=== PATIENT | female | born 1980 | race Hispanic/Latino ===

== ENCOUNTER 2023-03-20 21:07 | Emergency (ER) | payer MEDICARE ==
[~2023-03-20] VITALS: Ht 185.4 cm; Wt 94.8 kg
[2023-03-20] MEDS ORDERED: FAMOTIDINE 20 MG/2 ML VIAL IV STA (22:28)
[2023-03-20] MEDS ORDERED: ONDANSETRON HCL INJ 2MG/ML 2ML 2 MG/ML VIAL IV STA (22:28)
[2023-03-20] MEDS ORDERED: ONDANSETRON HCL INJ 2MG/ML 2ML 2 MG/ML VIAL ONE (22:31)
[2023-03-20] MEDS ORDERED: SODIUM CHLORIDE 0.9% 1000ML 1,000 ML ONE (22:31)
[2023-03-20] MEDS ORDERED: SODIUM CHLORIDE 0.9% 1000ML 1,000 ML IV STA ×2 (22:31→23:11)
[2023-03-20] MEDS ORDERED: FAMOTIDINE 20 MG/2 ML VIAL IV ONE (22:31)
[2023-03-20] MEDS ORDERED: DICYCLOMINE HCL 20 MG/2 ML VIAL IM STA (22:33)
[2023-03-20 22:50] LABS: BASOPHILS # (AUTO) 0.1 (0.0-0.1); BASOPHILS % 0.8 % (0.0-1.0); EOSINOPHILS # (AUTO) 0.4 (0.0-0.4); EOSINOPHILS % 6.3 % (0.0-6.0); HEMATOCRIT 46.7 % (34.2-44.1); HEMOGLOBIN 15.9 g/dL (12.0-16.0); LYMPHOCYTES # (AUTO) 1.7 (1.0-3.2); LYMPHOCYTES % 28.5 % (18.0-39.1); MEAN CORPUSCULAR HEMOGLOBIN 30.8 pg (28-32); MEAN CORPUSCULAR VOLUME 90.3 fL (81-99); MONOCYTES # (AUTO) 0.5 (0.2-0.8); MONOCYTES % 7.8 % (4.4-11.3); NEUTROPHILS # (AUTO) 3.3 (2.1-6.9); NEUTROPHILS % 56.4 % (38.7-80.0); PLATELET COUNT 215 x10e3/uL (140-360); RED BLOOD COUNT 5.17 x10e6/uL (3.6-5.1); RED CELL DISTRIBUTION WIDTH 14.6 % (11.7-14.4)
[2023-03-20 22:53] LABS: CLARITY,URINE CLEAR (CLEAR); COLOR,URINE YELLOW (YELLOW); KETONES,URINE 2+ (NEGATIVE); LEUKOCYTE ESTERASE ,URINE NEGATIVE (NEGATIVE); NITRITE,URINE NEGATIVE (NEGATIVE); PROTEIN,URINE DIPSTICK NEGATIVE (NEGATIVE)
[2023-03-20 22:54] LABS: BACTERIA,URINE FEW /HPF; EPITHELIAL CELLS,URINE FEW /LPF; RBC,URINE 0-5 /HPF (0-5); URINE UROBILINOGEN 0.2 mg/dL (0.2 - 1); WBC,URINE (MAN) 0-5 /HPF (0-5)
[2023-03-20 23:02] LABS: YEAST,URINE MODERATE
[2023-03-20 23:08] LABS: ALBUMIN 3.5 g/dL (3.5-5.0); ANION GAP 17.7 mmol/L (8-16); CALCIUM 9.1 mg/dL (8.4-10.2); CREATININE, SERUM 0.88 mg/dL (0.57-1.11); POTASSIUM 3.7 mmol/L (3.5-5.1)
[2023-03-20] MEDS ORDERED: INSULIN REGULAR, HUMAN 100 UNIT/1 ML SQ STA (23:12)
[2023-03-20] MEDS ORDERED: IOPAMIDOL 370 MG/ML 100 ML INFUS..BTL INJ ONE (23:18)
[2023-03-20] MEDS ORDERED: Morphine 4mg INJECTION 4 MG/ML INJ IV STA (23:48)
[2023-03-20] MEDS ORDERED: PROMETHAZINE 25MG/ NS 50ML (IV) IV STA (23:48)
[2023-03-20] MEDS ORDERED: Morphine 4mg INJECTION 4 MG/ML INJ ONE (23:52)
[2023-03-21] MEDS ORDERED: PROMETHAZINE HC25 M1 PO (00:36)
[2023-03-21] MEDS ORDERED: DICYCLOMINE HCL20 MG PO (00:36)
[2023-03-21] MEDS ORDERED: CIPRO500 MG PO (00:36)
[2023-03-21 00:48] VITALS: O2SAT 100
== END 2023-03-21 01:02 | disposition home or self-care (01) ==
LOC: ER 21:10
DX: R11.2 Nausea with vomiting, unspecified (principal); R10.33 Periumbilical pain; R73.9 Hyperglycemia, unspecified; I10 Essential (primary) hypertension; Z98.84 Bariatric surgery status
CPT/HCPCS: 36415; 74177; 80053; 81001; 81025; 82948; 83690; 85025; 99284; J0500; J2405; J2550; J7030; Q9967; J2270